=== PATIENT | male | born 1995 | race African-American/Black ===

== ENCOUNTER 2019-09-12 16:49 | Emergency (ER) | payer SELFPAY ==
[2019-09-12] MEDS ORDERED: Sodium Chloride 0.9% 10 ML Syringe FLUSH PRN (17:38)
--- NOTE | 2019-09-12 17:44 | EDM.PDOC ---
ED HPI GENERAL MEDICAL PROBLEM - General Chief Complaint: Chest Pain Stated Complaint: CHEST PAIN Time Seen by Provider: 09/12/19 17:31 Source of Information: Reports: Patient History Limitations: Reports: No Limitations - History of Present Illness INITIAL COMMENTS - FREE TEXT/NARRATIVE: Patient is a 23-year-old male who presents to the emergency department with complaints of left-sided chest pain since last night. He states last evening he was sitting and watching TV when the pain developed. He describes the pain as a constant dull ache that worsens when taking a deep breath. He cannot think of any exertional activities that may have caused strain to his chest wall. He states that last night he took a hot shower and let the water run on his chest which did improve his symptoms. He denies any shortness of breath, diaphoresis, acid reflux, nausea, vomiting, fever, or chills. He has no significant medical history. He has not taken any medications for pain thus far. chest Pain Score (Numeric/FACES): 7 - Related Data Allergies Allergy/AdvReac Type Severity Reaction Status Date / Time No Known Allergies Allergy Verified 09/12/19 17:00 Home Meds: Home Meds . [No Known Home Meds] 09/12/19 [History] Past Medical History - Past Health History Medical/Surgical History: Denies Medical/Surgical History Social & Family History - Tobacco Use Smoking Status *Q: Current Every Day Smoker Years of Tobacco use: 11 Packs/Tins Daily: 0.2 - Recreational Drug Use Recreational Drug Use: No ED ROS GENERAL - Review of Systems Review Of Systems: Comprehensive ROS is negative, except as noted in HPI. ED EXAM, GENERAL - Physical Exam Exam: See Below Exam Limited By: No Limitations General Appearance: Alert, WD/WN, No Apparent Distress Respiratory/Chest: No Respiratory Distress, Lungs Clear, Normal Breath Sounds, No Accessory Muscle Use, Chest Non-Tender Cardiovascular: Normal Peripheral Pulses, Regular Rate, Rhythm, No Edema, No Gallop, No JVD, No Murmur, No Rub GI/Abdominal: Normal Bowel Sounds, Soft, Non-Tender, No Organomegaly, No Distention, No Abnormal Bruit, No Mass Neurological: Alert, Oriented, CN II-XII Intact, Normal Cognition, Normal Gait, Normal Reflexes, No Motor/Sensory Deficits Psychiatric: Normal Affect, Normal Mood Skin Exam: Warm, Dry, Intact, Normal Color, No Rash Course - Vital Signs Last Recorded V/S: Last Vital Signs Temp 97 F 09/12/19 16:55 Pulse 91 09/12/19 16:55 Resp 19 09/12/19 16:55 BP 127/77 09/12/19 16:55 Pulse Ox 97 09/12/19 16:55 - Orders/Labs/Meds Orders: Active Orders 24 hr Category Date Time Status EKG Documentation Completion [RC] STAT Care 09/12/19 17:22 Active EKG Documentation Completion [RC] STAT Care 09/12/19 17:39 Active Peripheral IV Care [RC] . DIRECTED Care 09/12/19 17:39 Active Chest 2V [CR] Stat Exams 09/12/19 17:39 Taken Peripheral IV Insertion Adult [OM.PC] Stat Oth 09/12/19 17:38 Ordered Labs: Laboratory Tests 09/12/19 09/12/19 09/12/19 Range/Units 17:05 17:05 17:05 WBC 5.64 (4.23-9.07) K/mm3 RBC 5.83 (4.63-6.08) M/mm3 Hgb 17.1 (13.7-17.5) gm/dl Hct 48.9 (40.1-51.0) % MCV 83.9 (79.0-92.2) fl MCH 29.3 (25.7-32.2) pg MCHC 35.0 (32.2-35.5) g/dl RDW Std Deviation 41.1 (35.1-43.9) fL Plt Count 307 (163-337) K/mm3 MPV 9.8 (9.4-12.3) fl Neut % (Auto) 22.4 L (34.0-67.9) % Lymph % (Auto) 63.7 H (21.8-53.1) % Dawes % (Auto) 10.5 (5.3-12.2) % Eos % (Auto) 2.0 (0.8-7.0) Baso % (Auto) 1.2 (0.1-1.2) % Neut # (Auto) 1.27 L (1.78-5.38) K/mm3 Lymph # (Auto) 3.59 H (1.32-3.57) K/mm3 Dawes # (Auto) 0.59 (0.30-0.82) K/mm3 Eos # (Auto) 0.11 (0.04-0.54) K/mm3 Baso # (Auto) 0.07 (0.01-0.08) K/mm3 Manual Slide Review Abnormal smear D-Dimer, Quantitative < 0.19 L (0.19-0.50) mg/L Sodium 143 (136-145) mEq/L Potassium 3.7 (3.5-5.1) mEq/L Chloride 104 (98-107) mEq/L Carbon Dioxide 30 (21-32) mEq/L Anion Gap 12.7 (5-15) BUN 13 (7-18) mg/dL Creatinine 1.4 H (0.7-1.3) mg/dL Est Cr Clr Drug Dosing 80.75 mL/min Estimated GFR (MDRD) > 60 (>60) mL/min BUN/Creatinine Ratio 9.3 L (14-18) Glucose 81 (74-106) mg/dL Calcium 9.6 (8.5-10.1) mg/dL Total Bilirubin 0.5 (0.2-1.0) mg/dL AST 28 (15-37) U/L ALT 21 (16-63) U/L Alkaline Phosphatase 115 (46-116) U/L Troponin I < 0.017 (0.00-0.056) ng/mL C-Reactive Protein <0.2 (<1.0) mg/dL Total Protein 8.4 H (6.4-8.2) g/dl Albumin 4.6 (3.4-5.0) g/dl Globulin 3.8 gm/dL Albumin/Globulin Ratio 1.2 (1-2) Meds: Medications Discontinued Medications Generic Name Dose Route Start Last Admin Trade Name Freq PRN Reason Stop Dose Admin Ketorolac Tromethamine 30 mg 09/12/19 18:52 09/12/19 19:17 Toradol IVPUSH 09/12/19 18:53 30 mg ONETIME ONE Administration Sodium Chloride 10 ml 09/12/19 17:38 09/12/19 17:43 Saline Flush FLUSH 10 ml ASDIRECTED PRN Administration Keep Vein Open - Re-Assessments/Exams Free Text/Narrative Re-Assessment/Exam: Patient is a 23-year-old male who presents with complaints of left-sided chest pain that started last night. There is no exertional activities that precipitated the pain. States he was just watching TV when it started. He has no chronic health conditions. Pain worsens with deep breathing. EKG shows normal sinus rhythm with non-specific T wave inversion in lead III and T wave flattening in V4. Patient's pain is not worse when leaning forward which lowers the suspicion of a pericarditis. I have ordered a CBC, CMP, troponin, d- dimer, chest x-ray. Although my suspicion is very low, if this pain is cardiac in nature, we would expect to see an elevation in his troponin since pain has been ongoing since last evening. 09/12/19 18:51 Patient's work-up was found to be overall normal with the exception of his creatinine being slightly elevated at 1.4. EKG was nondiagnostic. Chest x-ray was normal. Based on patient's history and improvement in symptoms with a hot shower, it is likely that his pain is musculoskeletal chest wall pain. I will give him Toradol 30 mg through his IV prior to discharge. Recommend use ibuprofen as needed over the next few days. I also recommended that he follow- up in the clinic in a couple weeks to have his labs rechecked to ensure that his creatinine comes back down to normal. He is here visiting from [place] and will be going back on 16 September. He verbalized that he will follow-up when he gets home. Discharge instructions as documented. Departure - Departure Time of Disposition: 18:53 Disposition: Home, Self-Care 01 Condition: Good Clinical Impression: Atypical chest pain Instructions: Chest Wall Pain, [id number] Referrals: PCP,Not In Area [Primary Care Provider] - Forms: ED Department Discharge Additional Instructions: You were seen in the emergency department today for left-sided chest pain since last night. Your work-up included blood work, an EKG of your heart, and a chest x-ray. This was all found to be normal. Your cardiac enzyme was not elevated indicating that you are not having a heart attack. You do not have a blood clot in your lungs. It is likely that the cause of your pain is musculoskeletal chest wall pain. You received a dose of Toradol which is a nonsteroidal anti-inflammatory while in the emergency department. At home, recommend that you use ibuprofen, however do not take your first dose for at least 6 hours from now as it works similar to the Toradol that you received. Intermittent heat to your chest wall will likely also improve your symptoms. As we discussed, your creatinine which is a measure of your kidney function was very slightly elevated today. I would recommend that you follow-up with a primary care provider when you get home to have your labs rechecked to ensure that this does not remain elevated. If you experience any new or worsening symptoms of concern, please not hesitate to return to the emergency department. Sepsis Event Note - Evaluation Sepsis Screening Result: No Definite Risk - Focused Exam Vital Signs: Vital Signs Temp Pulse Resp BP Pulse Ox 09/12/19 16:55 97 F 91 19 127/77 97 Date Exam was Performed: 09/12/19 Time Exam was Performed: 20:05 - My Orders Last 24 Hours: My Active Orders 09/12/19 17:22 EKG Documentation Completion [RC] STAT 09/12/19 17:38 Peripheral IV Insertion Adult [OM.PC] Stat 09/12/19 17:39 EKG Documentation Completion [RC] STAT Peripheral IV Care [RC] . DIRECTED Chest 2V [CR] Stat - Assessment/Plan Last 24 Hours: My Active Orders 09/12/19 17:22 EKG Documentation Completion [RC] STAT 09/12/19 17:38 Peripheral IV Insertion Adult [OM.PC] Stat 09/12/19 17:39 EKG Documentation Completion [RC] STAT Peripheral IV Care [RC] . DIRECTED Chest 2V [CR] Stat
[2019-09-12] MEDS ORDERED: Ketorolac 30 MG/ML SDV IVPUSH ONE (18:52)
--- NOTE | 2019-09-13 06:34 | CR ---
Chest: 2 views of the chest were obtained. Comparison: No previous chest x-ray. Heart size and mediastinum are normal. Lungs are clear with no acute parenchymal change. Bony structures are grossly intact. Impression: 1. Nothing acute is seen on 2 view chest x-ray. Diagnostic code #1 This report was dictated in MDT
== END 2019-09-12 19:48 | disposition home or self-care (01) ==
LOC: JD.ED 16:49
DX: R07.89 Other chest pain (principal); F17.210 Nicotine dependence, cigarettes, uncomplicated
CPT/HCPCS: 36415; 71046; 80053; 84484; 85025; 85379; 86140; 93005; 96374; 99285; J1885; 93010; 99282